=== PATIENT | male | born 1940 | race Caucasian/White ===

== ENCOUNTER 2016-10-30 14:32 | Observation (INO) | payer OTHER ==
[~2016-10-30] VITALS: Ht 188 cm; Wt 94.5 kg
[2016-10-30] MEDS ORDERED: ASPIRIN 81 MG CHEW PO STA (15:07)
[2016-10-30] MEDS ORDERED: GI COCKTAIL PO STA (15:07)
--- NOTE | 2016-10-30 15:14 | DIAGNOSTIC IMAGING REPORT ---
CHEST ONE VIEW PORTABLE HISTORY: Atypical CHEST PAIN COMPARISON: None. FINDINGS: No pneumothorax. No pleural effusions. The heart is top normal in size. No evidence for pulmonary edema. Questionable left upper medial density is likely due to the overlapping ribs. Bibasilar densities favor subsegmental atelectasis. IMPRESSION: Bibasilar densities favor subsegmental atelectasis. Otherwise, no acute process within the chest. Electronically signed by: Kain Messer M.D. 10/30/2016 3:13 PM Dictated Date/Time: 10/30/2016 3:10 PM
[2016-10-30 15:15] LABS: BASO % 0.6 %; BASO ABS # 0.04 K/uL (0-0.2); COMPLETE YES; EOS % 4.5 %; HEMATOCRIT 43.3 % (42-52); IG% 0.3 %; LYMPH % 26.4 %; LYMPH ABS # 1.82 K/uL (1.2-3.4); MEAN CELL VOLUME 89.5 fL (80-100); MEAN CORPUSCULAR HEMOGLOBIN 30.6 pg (25-34); MEAN CORPUSCULAR HGB CONC 34.2 g/dl (32-36); MEAN PLATELET VOLUME 12.1 fL (7.4-10.4); NEUT % 58.2 %; PLATELET COUNT 187 K/uL (130-400); RED BLOOD COUNT 4.84 M/uL (4.7-6.1)
[2016-10-30] MEDS ORDERED: LIDOCAINE HCL 2% VISC SOLN 20 ML UDC ONE (15:15)
[2016-10-30] MEDS ORDERED: ALUMINUM/MAGNESIUM SUSP 30 ML UDC ONE (15:15)
[2016-10-30 15:23] LABS: PROTHROMBIN TIME (PATIENT) 10.9 SECONDS (9.0-12.0)
[2016-10-30] MEDS ORDERED: POLY335019 PO (15:30)
[2016-10-30] MEDS ORDERED: IBUP-103 PO (15:30)
[2016-10-30] MEDS ORDERED: MULT-513 PO (15:30)
[2016-10-30] MEDS ORDERED: TAMS0.4C38 PO (15:30)
[2016-10-30] MEDS ORDERED: FENO200C6 PO (15:30)
[2016-10-30] MEDS ORDERED: ZNTT/150 PO (15:30)
[2016-10-30 15:36] LABS: BUN/CREATININE RATIO 13.7 (10-20); CALCIUM 9.7 mg/dl (8.5-10.1); CREATININE 1.2 mg/dl (0.60-1.40); POTASSIUM 4.1 mmol/L (3.5-5.1)
[2016-10-30 15:41] LABS: CKMB/CK RATIO 2.1 (0-3.0)
[2016-10-30 17:08] VITALS: O2SAT 92; Ht 188 cm; Wt 94.5 kg
[2016-10-30] MEDS ORDERED: NITROGLYCERIN 0.4 MG SL PER TAB CHARGE SL PRN (17:30)
[2016-10-30] MEDS ORDERED: ONDANSETRON INJ 2 MG/ML 2 ML VIAL IV PRN (17:30)
[2016-10-30] MEDS ORDERED: FAMO20TA9 PO (17:38)
[2016-10-30] MEDS ORDERED: FAMOTIDINE 20 MG TAB PO PRN (17:45)
[2016-10-30 18:19] VITALS: O2SAT 95
[2016-10-30 18:35] VITALS: BP 158/83; PULSE 62; TEMP 36.4; O2SAT 94
[2016-10-30] MEDS ORDERED: MoRPHine SULFATE 2 MG/ML CARP IV PRN (19:00)
--- NOTE | 2016-10-30 19:25 | History and Physical ---
History & Physical Date & Time of Service: October 30, 2016 at 18:57 Chief Complaint: Chest Pain Primary Care Physician: Colby Morelos M.D. History of Present Illness Source: patient, spouse, clinic records, hospital records 76 year old male with PMH of BPH, Dyslipidemia, CKD stage 3, Diaphragmatic hernia presents to the Emergency Room with complaints of constant chest pain that started yesterday. He states that his constant chest pain is accompanied by intermittent "sharp" pains that he rates as a 8/10 in severity. He said that yesterday the pain was radiating to his right jaw area. He said today his both upper extremities feel numb. Nothing relieves or worsens the pain. he said that he had hx of hiatal hernia and usually take famotidine for acid reflux. he said that he never experience any chest pain like this. he is very active and continue to work. he said that he does have a family history of cardiac disease. His father of an aortic aneurysm. he is pain is about 5/10 now. he Denies any SOB, palpitation, headache, dizziness, diaphoresis and weakness. Past Medical/Surgical History Medical Problems: (1) Hiatal hernia Status: Chronic (2) Hypercholesteremia Status: Chronic Family History Cancer Diabetes mellitus FHx: aneurysm Heart disease Hypertension Social History Smoking Status: Former Smoker Alcohol Use: none Marital Status: Occupational Status: employed Allergies Coded Allergies: No Known Allergies (Unverified , 10/30/16) Home Medications Scheduled Fenofibrate (Tricor), 200 MG PO DAILY Multivitamins/Minerals (Mvi With Minerals), 1 TAB PO DAILY Polyethylene Glycol 3350 (Miralax), 17 GM PO DAILY Tamsulosin Hcl (Flomax), 0.4 MG PO DAILY Scheduled PRN Famotidine (Pepcid), 1 TAB PO DAILY PRN for acid reflux Review of Systems Constitutional: No chills, No fever, No sweats Eyes: No discharge, No eye pain, No worsening of vision ENT: No hearing loss, No nasal symptoms, No sore throat, No unusual epistaxis Respiratory: No cough, No dyspnea on exertion, No shortness of breath, No sputum, No wheezing Cardiovascular: + chest pain, No claudication, No edema Abdomen: No nausea, No pain, No vomiting Musculoskeletal: No calf pain Genitourinary - Male: No dysuria Neurologic: No memory loss, No vertigo, No weakness Psychiatric: No substance abuse Endocrine: No excessive thirst, No fatigue Hematologic / Lymphatic: No abnormal bleeding/bruising, No night sweats Integumentary: No itch, No rash Physical Exam Vital Signs Date Time Temp Pulse Resp B/P Pulse Ox O2 Delivery O2 Flow Rate FiO2 10/30/16 18:19 36.7 63 18 137/75 95 10/30/16 18:00 63 18 137/75 95 10/30/16 17:57 127/72 10/30/16 17:08 92 Room Air 10/30/16 16:47 61 94 10/30/16 16:42 66 92 10/30/16 16:30 135/80 10/30/16 16:12 61 94 10/30/16 16:07 61 18 93 Room Air 10/30/16 16:00 141/85 10/30/16 15:37 61 94 10/30/16 15:32 63 18 93 Room Air 10/30/16 15:30 127/75 10/30/16 15:12 64 18 133/75 95 Room Air 10/30/16 15:06 63 10/30/16 15:00 133/75 10/30/16 14:55 95 Room Air 10/30/16 14:55 95 Room Air 10/30/16 14:55 95 Room Air 10/30/16 14:40 36.7 63 22 152/75 95 Room Air General Appearance: WD/WN, no apparent distress Head: normocephalic, atraumatic Eyes: normal inspection, PERRL, EOMI ENT: normal ENT inspection, hearing grossly normal Neck: supple, no JVD Respiratory/Chest: lungs clear, normal breath sounds, no respiratory distress Cardiovascular: regular rate, rhythm, no JVD, no murmur Abdomen/GI: normal bowel sounds, non tender, soft, + pertinent finding ( tenderness in mid epigastric area with deep palpation) Back: normal inspection, no CVA tenderness, normal range of motion Extremities/Musculoskelatal: normal inspection, no calf tenderness, no pedal edema Neurologic/Psych: no motor/sensory deficits, alert, normal mood/affect, oriented x 3 Skin: normal color, warm/dry, no rash Diagnostics Laboratory Results Results Past 24 Hours Test 10/30/16 14:55 10/30/16 15:06 Range/Units White Blood Count 6.90 4.8-10.8 K/uL Red Blood Count 4.84 4.7-6.1 M/uL Hemoglobin 14.8 14.0-18.0 g/dL Hematocrit 43.3 42-52 % Mean Corpuscular Volume 89.5 80-100 fL Mean Corpuscular Hemoglobin 30.6 25-34 pg Mean Corpuscular Hemoglobin Concent 34.2 32-36 g/dl Platelet Count 187 130-400 K/uL Mean Platelet Volume 12.1 7.4-10.4 fL Neutrophils (%) (Auto) 58.2 % Lymphocytes (%) (Auto) 26.4 % Monocytes (%) (Auto) 10.0 % Eosinophils (%) (Auto) 4.5 % Basophils (%) (Auto) 0.6 % Neutrophils # (Auto) 4.02 1.4-6.5 K/uL Lymphocytes # (Auto) 1.82 1.2-3.4 K/uL Monocytes # (Auto) 0.69 0.11-0.59 K/uL Eosinophils # (Auto) 0.31 0-0.5 K/uL Basophils # (Auto) 0.04 0-0.2 K/uL RDW Standard Deviation 41.6 36.4-46.3 fL RDW Coefficient of Variation 12.8 11.5-14.5 % Immature Granulocyte % (Auto) 0.3 % Immature Granulocyte # (Auto) 0.02 0.00-0.02 K/uL Prothrombin Time 10.9 9.0-12.0 SECONDS Prothromb Time International Ratio 1.0 0.9-1.1 Activated Partial Thromboplast Time 27.1 21.0-31.0 SECONDS Partial Thromboplastin Ratio 1.0 Sodium Level 142 136-145 mmol/L Potassium Level 4.1 3.5-5.1 mmol/L Chloride Level 108 98-107 mmol/L Carbon Dioxide Level 25 21-32 mmol/L Anion Gap 9.0 3-11 mmol/L Blood Urea Nitrogen 16 7-18 mg/dl Creatinine 1.20 0.60-1.40 mg/dl Est Creatinine Clear Calc Drug Dose 62.8 ml/min Estimated GFR () 68.6 Estimated GFR (Non- 59.2 BUN/Creatinine Ratio 13.7 10-20 Random Glucose 102 70-99 mg/dl Calcium Level 9.7 8.5-10.1 mg/dl Total Bilirubin 0.4 0.2-1 mg/dl Direct Bilirubin 0.1 0-0.2 mg/dl Aspartate Amino Transf (AST/SGOT) 22 15-37 U/L Alanine Aminotransferase (ALT/SGPT) 39 12-78 U/L Alkaline Phosphatase 59 45-117 U/L Total Creatine Kinase 133 39-308 U/L Creatine Kinase MB 2.8 0.5-3.6 ng/ml Creatine Kinase MB Ratio 2.1 0-3.0 Total Protein 7.6 6.4-8.2 gm/dl Albumin 4.2 3.4-5.0 gm/dl Lipase 161 73-393 U/L Bedside Troponin I 0.000 0-0.045 ng/ml Diagnostic Radiology CHEST ONE VIEW PORTABLE HISTORY: Atypical CHEST PAIN COMPARISON: None. FINDINGS: No pneumothorax. No pleural effusions. The heart is top normal in size. No evidence for pulmonary edema. Questionable left upper medial density is likely due to the overlapping ribs. Bibasilar densities favor subsegmental atelectasis. IMPRESSION: Bibasilar densities favor subsegmental atelectasis. Otherwise, no acute process within the chest. Electronically signed by: Kain Messer M.D. 10/30/2016 3:13 PM Impression Assessment and Plan Chest Pain Need to r/o ACS Risks factor dyslipidemia, family history and age will observe in telemetry 1set troponin negative will order 2 more sets EKG showed NSR with no significant ST changes received aspirin 324mg in the ER Will start on aspirin 81mg daily will get echo, ekg in am morphine and nitro for pain Will consult cardiology if chest pain persist and CM trending up Dyslipidemia On fenofibrate Check lipid panel in am Diaphragmatic hernia Continue Pepcid BPH continue flomax DVT px on heparin subq CODE STATUS FULL CODE as per patient Level of Care Telemetry Advanced Directives Existing Living Will: No Existing Power of Lap Machine Operator: No Resuscitation Status FULL RESUSCITATION VTE Prophylaxis VTE Risk Assessment Done? Y/N: Yes Risk Level: Low Given or contraindicated: Unfractionated heparin SQ
--- NOTE | 2016-10-30 19:39 | EMERGENCY ROOM VISIT NOTE ---
History Report prepared by Jessica: Albert Harrington Under the Supervision of: Dr. Raúl Baltazar M.D. First contact with patient: 14:51 Chief Complaint: CHEST PAIN Stated Complaint: CHEST PAINS History of Present Illness The patient is a 76 year old male who presents to the Emergency Room with complaints of constant pain diffusely across the chest that began yesterday. He states that his constant pain is accompanied by intermittent "sharp" pains that he rates as a 8/10 in severity. Nothing relieves or worsens the pain. The patient claims that he experienced radiation of the pain in to his right jaw yesterday. He does have a history of hyperlipidemia and has had a hiatal hernia in the past. The hiatal hernia in the past did cause him chest pain, but he cannot recall if this episode is similar. He took some Advil yesterday for his pain. The patient does have a family history of cardiac disease. His father of an aortic aneurysm, and his brother had an abdominal aneurysm. He currently denies LOC, headache, fevers, chills, diaphoresis, visual changes, neck pain, breathing difficulties, nausea, vomiting, abdominal pain, melena, hematochezia, urinary symptoms, numbness, weakness, lymphadenopathy, rash, or other complaints. 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 A total of ten systems were reviewed and were otherwise negative. Past Medical & Surgical Medical Problems: (1) Chest pain (2) Hiatal hernia (3) Hypercholesteremia Family History Cancer Diabetes mellitus FHx: aneurysm Heart disease Hypertension Social History Smoking Status: Former Smoker Drug Use: none Marital Status: Housing Status: lives with significant other Occupation Status: employed Current/Historical Medications Scheduled Fenofibrate (Tricor), 200 MG PO DAILY Multivitamins/Minerals (Mvi With Minerals), 1 TAB PO DAILY Polyethylene Glycol 3350 (Miralax), 17 GM PO DAILY Tamsulosin Hcl (Flomax), 0.4 MG PO DAILY Scheduled PRN Famotidine (Pepcid), 1 TAB PO DAILY PRN for acid reflux Allergies Coded Allergies: No Known Allergies (Unverified , 5/11/17) Physical Exam Vital Signs Date Time Temp Pulse Resp B/P Pulse Ox O2 Delivery O2 Flow Rate FiO2 10/30/16 17:08 92 Room Air 10/30/16 16:47 61 94 10/30/16 16:42 66 92 10/30/16 16:30 135/80 10/30/16 16:12 61 94 10/30/16 16:07 61 18 93 Room Air 10/30/16 16:00 141/85 10/30/16 15:37 61 94 10/30/16 15:32 63 18 93 Room Air 10/30/16 15:30 127/75 10/30/16 15:12 64 18 133/75 95 Room Air 10/30/16 15:06 63 10/30/16 15:00 133/75 10/30/16 14:55 95 Room Air 10/30/16 14:55 95 Room Air 10/30/16 14:55 95 Room Air 10/30/16 14:40 36.7 63 22 152/75 95 Room Air Physical Exam GENERAL: Awake, alert, well-appearing, in no distress HENT: Normocephalic, atraumatic. Oropharynx unremarkable. EYES: Normal conjunctiva. Sclera non-icteric. NECK: Supple. No nuchal rigidity. FROM. No JVD. RESPIRATORY: Clear to auscultation. CARDIAC: Regular rate, normal rhythm. Extremities warm and well perfused. Pulses equal. ABDOMEN: Soft, non-distended. Very mild epigastric tenderness to palpation. No rebound or guarding. No masses. RECTAL: Deferred. MUSCULOSKELETAL: Chest examination reveals no tenderness. The back is symmetrical on inspection without obvious abnormality. There is no CVA tenderness to palpation. No joint edema. LOWER EXTREMITIES: Calves are equal size bilaterally and non-tender. No edema. No discoloration. NEURO: Normal sensorium. No sensory or motor deficits noted. SKIN: No rash or jaundice noted. Medical Decision & Procedures ER Provider Diagnostic Interpretation: Radiology results as stated below per my review and radiologist interpretation: CHEST ONE VIEW PORTABLE HISTORY: Atypical CHEST PAIN COMPARISON: None. FINDINGS: No pneumothorax. No pleural effusions. The heart is top normal in size. No evidence for pulmonary edema. Questionable left upper medial density is likely due to the overlapping ribs. Bibasilar densities favor subsegmental atelectasis. IMPRESSION: Bibasilar densities favor subsegmental atelectasis. Otherwise, no acute process within the chest. Electronically signed by: Kain Messer M.D. 10/30/2016 3:13 PM Dictated Date/Time: 10/30/2016 3:10 PM Laboratory Results 10/30/16 14:55 Red Blood Count 4.84, Mean Corpuscular Volume 89.5, Mean Corpuscular Hemoglobin 30.6, Mean Corpuscular Hemoglobin Concent 34.2, Mean Platelet Volume 12.1, Neutrophils (%) (Auto) 58.2, Lymphocytes (%) (Auto) 26.4, Monocytes (%) (Auto) 10.0, Eosinophils (%) (Auto) 4.5, Basophils (%) (Auto) 0.6, Neutrophils # (Auto ) 4.02, Lymphocytes # (Auto) 1.82, Monocytes # (Auto) 0.69, Eosinophils # (Auto ) 0.31, Basophils # (Auto) 0.04 10/30/16 14:55 Test 10/30/16 14:55 10/30/16 15:06 White Blood Count 6.90 K/uL (4.8-10.8) Red Blood Count 4.84 M/uL (4.7-6.1) Hemoglobin 14.8 g/dL (14.0-18.0) Hematocrit 43.3 % (42-52) Mean Corpuscular Volume 89.5 fL (80-100) Mean Corpuscular Hemoglobin 30.6 pg (25-34) Mean Corpuscular Hemoglobin Concent 34.2 g/dl (32-36) Platelet Count 187 K/uL (130-400) Mean Platelet Volume 12.1 fL (7.4-10.4) Neutrophils (%) (Auto) 58.2 % Lymphocytes (%) (Auto) 26.4 % Monocytes (%) (Auto) 10.0 % Eosinophils (%) (Auto) 4.5 % Basophils (%) (Auto) 0.6 % Neutrophils # (Auto) 4.02 K/uL (1.4-6.5) Lymphocytes # (Auto) 1.82 K/uL (1.2-3.4) Monocytes # (Auto) 0.69 K/uL (0.11-0.59) Eosinophils # (Auto) 0.31 K/uL (0-0.5) Basophils # (Auto) 0.04 K/uL (0-0.2) RDW Standard Deviation 41.6 fL (36.4-46.3) RDW Coefficient of Variation 12.8 % (11.5-14.5) Immature Granulocyte % (Auto) 0.3 % Immature Granulocyte # (Auto) 0.02 K/uL (0.00-0.02) Prothrombin Time 10.9 SECONDS (9.0-12.0) Prothromb Time International Ratio 1.0 (0.9-1.1) Activated Partial Thromboplast Time 27.1 SECONDS (21.0-31.0) Partial Thromboplastin Ratio 1.0 Anion Gap 9.0 mmol/L (3-11) Est Creatinine Clear Calc Drug Dose 62.8 ml/min Estimated GFR () 68.6 Estimated GFR (Non- 59.2 BUN/Creatinine Ratio 13.7 (10-20) Calcium Level 9.7 mg/dl (8.5-10.1) Total Bilirubin 0.4 mg/dl (0.2-1) Direct Bilirubin 0.1 mg/dl (0-0.2) Aspartate Amino Transf (AST/SGOT) 22 U/L (15-37) Alanine Aminotransferase (ALT/SGPT) 39 U/L (12-78) Alkaline Phosphatase 59 U/L (45-117) Total Creatine Kinase 133 U/L (39-308) Creatine Kinase MB 2.8 ng/ml (0.5-3.6) Creatine Kinase MB Ratio 2.1 (0-3.0) Total Protein 7.6 gm/dl (6.4-8.2) Albumin 4.2 gm/dl (3.4-5.0) Lipase 161 U/L (73-393) Bedside Troponin I 0.000 ng/ml (0-0.045) Laboratory results reviewed by me Medications Administered Medications (Trade) Dose Ordered Sig/Melissa Route Start Time Stop Time Status Last Admin Dose Admin Aspirin (Aspirin Chew) 324 mg NOW STAT PO 10/30/16 15:07 10/30/16 15:09 DC 10/30/16 15:18 324 MG Al Hydroxide/Mg Hydroxide (Maalox Susp) 30 ml STK-MED ONCE .ROUTE 10/30/16 15:15 10/30/16 15:16 DC 10/30/16 15:19 30 ML Lidocaine HCl (Viscous Lidocaine 2% Soln) 20 ml STK-MED ONCE .ROUTE 10/30/16 15:15 10/30/16 15:16 DC 10/30/16 15:19 10 ML ECG Indication: chest pain Rate (beats per minute): 88 Rhythm: normal sinus Findings: nonspecific-ST abn, no ectopy ED Course 1505: The patient was evaluated in room B11B. A complete history and physical exam was performed. 1507: Ordered Aspiring 324 mg PO, GI cocktail 24 mL PO. 1515: Ordered Lidocaine HCl 20 mL, Maalox Susp 30 mL 1650: I discussed the case with Dr. Abdoulaye Cruz, he will evaluate the patient for further treatment. 165: I checked on the patient at this time. He is agreeable to stay in the hospital for a chest pain rule out. Medical Decision Triage Nursing notes reviewed. The patient's presentation and history were concerning for chest pain. Etiologies such as cardiac ischemia, aortic dissection, pulmonary embolism, pneumonia, pneumothorax, musculoskeletal, infections, gastrointestinal, as well as others were entertained. Patient was evaluated. He was treated with a GI cocktail and aspirin. He noticed some improvement. The patient had an unremarkable CBC, chemistry panel , LFTs, lipase, and cardiac markers. Chest x-ray was negative. No wide mediastinum. Given the patient's history and complaints further evaluation and management for his chest pain in the hospital was deemed appropriate. The patient was informed. The patient and were in agreement. Consultation was made with the Merlene cruz. The patient was evaluated in the Emergency Room and admitted. The chart was completed utilizing [employer] Speech voice recognition software. Grammatical errors, random word insertions, pronoun errors, and incomplete sentences are an occasional consequence of this system due to software limitations, ambient noise, and hardware issues. Any formal questions or concerns about the content, text, or information contained within the body of this dictation should be directly addressed to the physician for clarification. Consults Time Called: 164 Consulting Physician: Dr. Abdoulaye Cruz Returned Call: 1650 I discussed the case with Dr. Abdoulaye Cruz, he will evaluate the patient for further treatment. Impression Primary Impression: Substernal chest pain Scribe Attestation The scribe's documentation has been prepared under my direction and personally reviewed by me in its entirety. I confirm that the note above accurately reflects all work, treatment, procedures, and medical decision making performed by me. Departure Information Dispostion Being Evaluated By Hospitalist Patient Instructions My [facility]
[2016-10-30] MEDS: HEPARIN SOD 5000 UNIT/0.5 ML CARP SQ SCH (21:33)
[2016-10-30] MEDS ORDERED: IV FLUIDS COMPLETED PRN (21:45)
[2016-10-31 00:09] VITALS: BP 118/67; PULSE 60; TEMP 36.7; O2SAT 93
[2016-10-31 02:26] LABS: HEMATOCRIT 41.3 % (42-52); MEAN CELL VOLUME 90.2 fL (80-100); MEAN CORPUSCULAR HEMOGLOBIN 30.1 pg (25-34); MEAN CORPUSCULAR HGB CONC 33.4 g/dl (32-36); MEAN PLATELET VOLUME 11.7 fL (7.4-10.4); PLATELET COUNT 169 K/uL (130-400); RED BLOOD COUNT 4.58 M/uL (4.7-6.1); WHITE BLOOD COUNT 7.01 K/uL (4.8-10.8)
[2016-10-31 02:42] LABS: BLOOD UREA NITROGEN 19 mg/dl (7-18); CARBON DIOXIDE 27 mmol/L (21-32); CHLORIDE 109 mmol/L (98-107); GLUCOSE 109 mg/dl (70-99); POTASSIUM 3.8 mmol/L (3.5-5.1); SODIUM 142 mmol/L (136-145)
[2016-10-31 02:47] LABS: CHOLESTEROL 143 mg/dl (0-200); CHOLESTEROL/HDL RATIO 3.6; HDL CHOLESTEROL 40 mg/dl; LDL CHOLESTEROL CALCULATED 81 mg/dl; TRIGLYCERIDES 112 mg/dl (0-150); VERY LOW DENSITY LIPOPROT CALC 22 mg/dl
[2016-10-31 04:26] VITALS: BP 111/68; PULSE 62; TEMP 36.7; O2SAT 92
[2016-10-31] MEDS: HEPARIN SOD 5000 UNIT/0.5 ML CARP SQ SCH ×2 (05:22→13:38)
[2016-10-31] MEDS ORDERED: SODIUM CHLORIDE 0.9% 1000ML 1,000 ML IV SCH (08:30)
[2016-10-31] MEDS ORDERED: TAMSULOSIN HCL 0.4 MG CAP PO SCH (09:00)
[2016-10-31] MEDS ORDERED: FENOFIBRATE 145 MG TAB PO SCH (09:00)
[2016-10-31] MEDS ORDERED: ASPIRIN 81 MG ECTAB PO SCH (09:00)
[2016-10-31] MEDS ORDERED: POLYETHYLENE (MIRALAX) 17 GM PACK PO SCH (09:00)
[2016-10-31 12:04] VITALS: BP 150/75; PULSE 55; TEMP 36.4; O2SAT 94
[2016-10-31 15:08] VITALS: BP 137/82; PULSE 55; TEMP 36.4; O2SAT 94
--- NOTE | 2016-10-31 16:28 | Progress Note ---
Medicine Progress Note Date & Time of Visit: October 31, 2016 at 16:17. Subjective Pt was seen and examined Lying in bed very comfortable with no distress Pt said that he feels fine he said that he does not have any chest pain at this time denies any palpitation, dizziness and SOB Objective Last 8 Hrs Date Time Temp Pulse Resp B/P Pulse Ox O2 Delivery O2 Flow Rate FiO2 10/31/16 15:08 36.4 55 18 137/82 94 Room Air 10/31/16 12:04 36.4 55 18 150/75 94 10/31/16 12:00 Room Air Physical Exam: General- No acute distress Head- atraumatic Eyes- PERRL, EOMI ENT- oropharynx clear Neck- supple, no JVD Lungs- clear to auscultation, no wheezing Heart- regular rhythm; no murmur Abdomen- normal bowel sounds, soft, Nontender Extremities- no calf tenderness Neuro- alert, oriented x 3; PERRL, EOMI; no facial palsy; no dysarthria Skin- warm & dry Laboratory Results: Last 24 Hours Test 10/30/16 21:00 10/30/16 21:05 10/31/16 02:21 Creatine Kinase MB Ratio Creatine Kinase MB 2.0 ng/ml Troponin I < 0.015 ng/ml < 0.015 ng/ml White Blood Count 7.01 K/uL Red Blood Count 4.58 M/uL Hemoglobin 13.8 g/dL Hematocrit 41.3 % Mean Corpuscular Volume 90.2 fL Mean Corpuscular Hemoglobin 30.1 pg Mean Corpuscular Hemoglobin Concent 33.4 g/dl RDW Standard Deviation 41.9 fL RDW Coefficient of Variation 12.8 % Platelet Count 169 K/uL Mean Platelet Volume 11.7 fL Sodium Level 142 mmol/L Potassium Level 3.8 mmol/L Chloride Level 109 mmol/L Carbon Dioxide Level 27 mmol/L Anion Gap 6.0 mmol/L Blood Urea Nitrogen 19 mg/dl Creatinine 1.50 mg/dl Est Creatinine Clear Calc Drug Dose 50.3 ml/min Estimated GFR () 52.4 Estimated GFR (Non- 45.2 BUN/Creatinine Ratio 13.0 Random Glucose 109 mg/dl Calcium Level 9.0 mg/dl Triglycerides Level 112 mg/dl Cholesterol Level 143 mg/dl HDL Cholesterol 40 mg/dl LDL Cholesterol, Calculated 81 mg/dl VLDL Cholesterol, Calculated 22 mg/dl Cholesterol/HDL Ratio 3.6 Assessment & Plan Chest Pain Need to r/o ACS Possible atypical Pain free at this time Risks factor dyslipidemia, family history and age all set of troponin negative EKG showed no significant ST changes received aspirin 324mg in the ER on aspirin 81mg daily Echo showed Ejection Fraction = 65-70%. * The left ventricular wall motion is normal. * The aortic valve is mildly calcified. * Aortic valve sclerosis mild, without significant aortic valvular stenosis. * There is moderate focal calcification of the anterior mitral valve leaflet. * The mitral valve chordae are thickened and/or calcified. * There is no mitral valve stenosis. * Significant mitral regurgitation is absent. * Grade I diastolic dysfunction, (abnormal relaxation pattern). Elevated Creatine Possible related to dehydration Received IV fluid Continue Monitor BMP Will avoid nephrotoxic agents Dyslipidemia On fenofibrate Chol 143, LDL 81, Trig 112, HDL 40 Diaphragmatic hernia Continue Pepcid BPH continue flomax DVT px on heparin subq CODE STATUS FULL CODE Disposition Will discharge home today if echo is normal Follow up with PCP Dr. Farmer on 11/06 @ 2:45 pm Current Inpatient Medications: Current Inpatient Medications Medications (Trade) Dose Ordered Sig/Melissa Route Start Time Stop Time Status Last Admin Dose Admin Heparin Sodium (Porcine) (Heparin Sq 5000 Unit/0.5ml) 5,000 unit Q8 SQ 10/30/16 22:00 11/29/16 21:59 Ondansetron HCl (Zofran Inj) 4 mg Q6H PRN IV 10/30/16 17:30 11/29/16 17:29 Nitroglycerin (Nitrostat Tab) 0.4 mg UD PRN SL 10/30/16 17:30 11/29/16 17:29 Aspirin (Ecotrin Tab) 81 mg QAM PO 10/31/16 09:00 11/30/16 08:59 10/31/16 07:57 81 MG Famotidine (Pepcid Tab) 20 mg DAILY PRN PO 10/30/16 17:45 11/29/16 17:44 Tamsulosin HCl (Flomax Cap) 0.4 mg DAILY PO 10/31/16 09:00 11/30/16 08:59 10/31/16 07:56 0.4 MG Fenofibrate (Tricor Tab) 145 mg DAILY PO 10/31/16 09:00 11/30/16 08:59 10/31/16 07:57 145 MG Polyethylene (Miralax Powder Packet) 17 gm QAM PO 10/31/16 09:00 11/30/16 08:59 10/31/16 07:56 17 GM Miscellaneous Information (Order Awaiting Action) 1 ea QS N/A 10/31/16 00:00 11/30/16 00:00 Morphine Sulfate (MoRPHine SULFATE INJ) 1 mg Q4 PRN IV 10/30/16 19:00 11/13/16 18:59 10/30/16 19:13 1 MG Miscellaneous 1 ea 1 ea PRN PRN N/A 10/30/16 21:45 10/30/17 21:44 Sodium Chloride (Nss 1000ml) 1,000 ml @ 100 mls/hr Q10H IV 10/31/16 08:30 11/30/16 08:29 10/31/16 09:01 100 MLS/HR
--- NOTE | 2016-10-31 16:59 | ECHOCARDIOGRAM REPORT ---
*NOTICE TO RECEIVING LIBERTARIAN AGENCY This information is strictly Confidential and protected under [place] law. [place] law prohibits you from making any further disclosure of this information unless further disclosure is expressly permitted by the written consent of the person to whom it pertains or is authorized by law. A general authorization for the release of medical or other information is not sufficient for this purpose. Hospital accepts no responsibility if the information is made available to any other person, INCLUDING THE PATIENT. Interpretation Summary * Name: REJI HORTON Study Date: 10/31/2016 08:50 AM BP: 111/68 mmHg * Patient Location: [facility]\S\N284\S\2 HR: 55 * : 1940 (M/d/yyyy) Gender: Male Height: 74 in * Age: 76 yrs Ethnicity: [place] Weight: 215 lb * Ordering Physician: Eren Meade * Referring Physician: Colby Morelos * Performed By: Estella Beltran RDCS * * Reason For Study: CHEST PAIN * BSA: 2.2 m2 * The study was technically adequate. * There is no comparison study available. * -- Conclusions -- * Ejection Fraction = 65-70%. * The left ventricular wall motion is normal. * The aortic valve is mildly calcified. * Aortic valve sclerosis mild, without significant aortic valvular stenosis. * There is moderate focal calcification of the anterior mitral valve leaflet. * The mitral valve chordae are thickened and/or calcified. * There is no mitral valve stenosis. * Significant mitral regurgitation is absent. * Grade I diastolic dysfunction, (abnormal relaxation pattern). Procedure Details * A complete two-dimensional transthoracic echocardiogram was performed (2D, M-mode, Doppler and color flow Doppler). Left Ventricle * The left ventricle is normal in size. * There is no thrombus. * There is mild concentric left ventricular hypertrophy. * Ejection Fraction = 65-70%. * Left ventricular systolic function is normal. * The left ventricular wall motion is normal. Right Ventricle * The right ventricle is normal size. * The right ventricular systolic function is normal as assessed by tricuspid annular plane systolic excursion (TAPSE) (normal >1.5 cm). Atria * The left atrial size is normal. * Right atrial size is normal. * There is no evidence of atrial septal defect, but resolution does not allow assessment for a patent foramen ovale. Mitral Valve * There is moderate focal calcification of the anterior mitral valve leaflet. * The mitral valve chordae are thickened and/or calcified. * There is no mitral valve stenosis. * Significant mitral regurgitation is absent. Tricuspid Valve * The tricuspid valve is normal. * There is no tricuspid stenosis. * Significant tricuspid regurgitation is absent. Aortic Valve * The aortic valve is trileaflet. * The aortic valve is mildly calcified. * Aortic valve sclerosis mild, without significant aortic valvular stenosis. * Aortic stenosis is absent. * There is no significant aortic regurgitation. Pulmonic Valve * The pulmonary valve is not well seen, but the Doppler examination is normal without significant regurgitation or stenosis. Great Vessels * The aortic root is normal size. Pericardium/Pleural * There is no pericardial effusion. Great Vessels * Normal inferior vena cava diameter and respiratory variation suggests normal central venous pressure. Left Ventricular Diastolic Function * Grade I diastolic dysfunction, (abnormal relaxation pattern). MMode 2D Measurements and Calculations IVSd 1.1 cm IVSs 1.6 cm LVIDd 4.1 cm LVIDs 2.2 cm LVPWd 1.1 cm LVPWs 1.8 cm IVS/LVPW 1.1 FS 45.7 % EDV(Teich) 76.1 ml ESV(Teich) 17.1 ml EF(Teich) 77.5 % EDV(cubed) 71.2 ml ESV(cubed) 11.4 ml EF(cubed) 84.0 % % IVS thick 43.9 % % LVPW thick 66.6 % LV mass(C)d 153.5 grams LV mass(C)dI 68.5 grams/m\S\2 LV mass(C)s 141.4 grams LV mass(C)sI 63.1 grams/m\S\2 CO(Teich) 3.5 l/min CI(Teich) 1.6 l/min/m\S\2 SV(Teich) 59.0 ml SI(Teich) 26.3 ml/m\S\2 CO(cubed) 3.5 l/min CI(cubed) 1.6 l/min/m\S\2 SV(cubed) 59.8 ml SI(cubed) 26.7 ml/m\S\2 Ao root diam 3.0 cm Ao root area 7.0 cm\S\2 LA dimension 3.1 cm LA/Ao 1.0 LVAd ap4 30.3 cm\S\2 LVLd ap4 8.5 cm EDV(MOD-sp4) 88.9 ml LVAs ap4 14.6 cm\S\2 LVLs ap4 6.3 cm ESV(MOD-sp4) 29.0 ml EF(MOD-sp4) 67.4 % LVAd ap2 25.3 cm\S\2 LVLd ap2 8.0 cm EDV(MOD-sp2) 67.2 ml LVAs ap2 12.0 cm\S\2 LVLs ap2 5.4 cm ESV(MOD-sp2) 23.7 ml EF(MOD-sp2) 64.7 % CO(MOD-sp4) 3.5 l/min CI(MOD-sp4) 1.6 l/min/m\S\2 SV(MOD-sp4) 59.9 ml SI(MOD-sp4) 26.7 ml/m\S\2 CO(MOD-sp2) 2.6 l/min CI(MOD-sp2) 1.1 l/min/m\S\2 SV(MOD-sp2) 43.5 ml SI(MOD-sp2) 19.4 ml/m\S\2 Doppler Measurements and Calculations MV E max carole 68.9 cm/sec MV A max carole 67.4 cm/sec MV E/A 1.0 MV dec time 0.28 sec Ao V2 max 129.5 cm/sec Ao max PG 6.7 mmHg Ao max PG (full) 1.0 mmHg LV V1 max PG 5.7 mmHg LV V1 max 119.3 cm/sec
[2016-10-31 17:49] VITALS: BP 137/82; PULSE 55; TEMP 36.4; O2SAT 94
[2016-10-31] MEDS ORDERED: ASPEC81 PO ×2 (18:02→18:11)
--- NOTE | 2016-10-31 18:06 | Discharge Instructions ---
Discharge Instructions Date of Service October 31, 2016. Admission Reason for Admission: Chest Pain Discharge Discharge Diagnosis / Problem: Chest pain, Elevated creatine, GERD Discharge Goals Goal(s): Decrease discomfort, Improve function, Improve disease control Activity Recommendations Activity Limitations: resume your previous activity (as tolerated) . Instructions / Follow-Up Instructions / Follow-Up Follow up with your primary care physician Dr. Farmer (dr. Morelos is on vacation) on 11/06 @ 2:45 pm Check BMP within 1 week Avoid nephrotoxic agents such as aleve, ibuprofen, motrin, naproxen Current Hospital Diet Patient's current hospital diet: AHA Diet (Heart Healthy) Discharge Diet Recommended Diet: AHA Diet (Heart Healthy) Pending Studies Studies pending at discharge: no Laboratory Results Lipid Panel Test 10/31/16 02:21 Range/Units Triglycerides Level 112 0-150 mg/dl Cholesterol Level 143 0-200 mg/dl HDL Cholesterol 40 mg/dl Cholesterol/HDL Ratio 3.6 LDL Cholesterol, Calculated 81 mg/dl Medical Emergencies . Who to Call and When: Medical Emergencies: If at any time you feel your situation is an emergency, please call 911 immediately. . Non-Emergent Contact Non-Emergency issues call your: Primary Care Provider Call Non-Emergent contact if: you have any medication questions . . "Provider Documentation" section prepared by Eren Meade. . VTE Core Measure Inpt VTE Proph given/why not?: Unfractionated heparin SQ
--- NOTE | 2016-11-02 18:50 | Discharge Summary ---
Discharge Summary Date of Service November 02, 2016. Discharge Summary Admission Date: October 30, 2016 at 17:25 Discharge Date: October 31, 2016 Discharge Disposition: Home Principal Diagnosis: Chest pain Secondary Diagnoses/Problems: Elevated creatine GERD Diaphragmatic hernia Dyslipidemia BPH Procedures: Echo Interpretation Summary * Name: REJI HORTON Study Date: 10/31/2016 08:50 AM BP: 111/68 mmHg * Patient Location: [facility]\\S\\N284\\S\\2 HR: 55 * : 1940 (M/d/yyyy) Gender: Male Height: 74 in * Age: 76 yrs Ethnicity: [place] Weight: 215 lb * Ordering Physician: Eren Meade * Referring Physician: Colby Morelos * Performed By: Estella Beltran RDCS * * Reason For Study: CHEST PAIN * BSA: 2.2 m2 * The study was technically adequate. * There is no comparison study available. * -- Conclusions -- * Ejection Fraction = 65-70%. * The left ventricular wall motion is normal. * The aortic valve is mildly calcified. * Aortic valve sclerosis mild, without significant aortic valvular stenosis. * There is moderate focal calcification of the anterior mitral valve leaflet. * The mitral valve chordae are thickened and/or calcified. * There is no mitral valve stenosis. * Significant mitral regurgitation is absent. * Grade I diastolic dysfunction, (abnormal relaxation pattern). Procedure Details * A complete two-dimensional transthoracic echocardiogram was performed (2D, M-mode, Doppler and color flow Doppler). Left Ventricle * The left ventricle is normal in size. * There is no thrombus. * There is mild concentric left ventricular hypertrophy. * Ejection Fraction = 65-70%. * Left ventricular systolic function is normal. * The left ventricular wall motion is normal. Right Ventricle * The right ventricle is normal size. * The right ventricular systolic function is normal as assessed by tricuspid annular plane systolic excursion (TAPSE) (normal >1.5 cm). Atria * The left atrial size is normal. * Right atrial size is normal. * There is no evidence of atrial septal defect, but resolution does not allow assessment for a patent foramen ovale. Mitral Valve * There is moderate focal calcification of the anterior mitral valve leaflet. * The mitral valve chordae are thickened and/or calcified. * There is no mitral valve stenosis. * Significant mitral regurgitation is absent. Tricuspid Valve * The tricuspid valve is normal. * There is no tricuspid stenosis. * Significant tricuspid regurgitation is absent. Aortic Valve * The aortic valve is trileaflet. * The aortic valve is mildly calcified. * Aortic valve sclerosis mild, without significant aortic valvular stenosis. * Aortic stenosis is absent. * There is no significant aortic regurgitation. Pulmonic Valve * The pulmonary valve is not well seen, but the Doppler examination is normal without significant regurgitation or stenosis. Great Vessels * The aortic root is normal size. Pericardium/Pleural * There is no pericardial effusion. Great Vessels * Normal inferior vena cava diameter and respiratory variation suggests normal central venous pressure. Left Ventricular Diastolic Function * Grade I diastolic dysfunction, (abnormal relaxation pattern). Medication Reconciliation Continued Medications: Famotidine (Pepcid) 20 Mg Tab 1 TAB PO DAILY PRN for acid reflux, TAB Fenofibrate (Tricor) 200 Mg Cap 200 MG PO DAILY, CAP Multivitamins/Minerals (Mvi With Minerals) Tab 1 TAB PO DAILY, TAB Polyethylene Glycol 3350 (Miralax) 1 Pow Pow 17 GM PO DAILY, #255 GM Tamsulosin Hcl (Flomax) 0.4 Mg Cap 0.4 MG PO DAILY, CAP Admission Information HPI (per Admitting provider): 76 year old male with PMH of BPH, Dyslipidemia, CKD stage 3, Diaphragmatic hernia presents to the Emergency Room with complaints of constant chest pain that started yesterday. He states that his constant chest pain is accompanied by intermittent "sharp" pains that he rates as a 8/10 in severity. He said that yesterday the pain was radiating to his right jaw area. He said today his both upper extremities feel numb. Nothing relieves or worsens the pain. he said that he had hx of hiatal hernia and usually take famotidine for acid reflux. he said that he never experience any chest pain like this. he is very active and continue to work. he said that he does have a family history of cardiac disease. His father of an aortic aneurysm. he is pain is about 5/10 now. he Denies any SOB, palpitation, headache, dizziness, diaphoresis and weakness. Physical Exam (per Admitting): General Appearance: WD/WN, no apparent distress Head: normocephalic, atraumatic Eyes: normal inspection, PERRL, EOMI ENT: normal ENT inspection, hearing grossly normal Neck: supple, no JVD Respiratory/Chest: lungs clear, normal breath sounds, no respiratory distress Cardiovascular: regular rate, rhythm, no JVD, no murmur Abdomen/GI: normal bowel sounds, non tender, soft, + pertinent finding ( tenderness in mid epigastric area with deep palpation) Back: normal inspection, no CVA tenderness, normal range of motion Extremities/Musculoskelatal: normal inspection, no calf tenderness, no pedal edema Neurologic/Psych: no motor/sensory deficits, alert, normal mood/affect, oriented x 3 Skin: normal color, warm/dry, no rash Hospital Course Chest Pain Need to r/o ACS Possible atypical Pain free at this time Risks factor dyslipidemia, family history and age all set of troponin negative EKG showed no significant ST changes received aspirin 324mg in the ER on aspirin 81mg daily Echo showed Ejection Fraction = 65-70%. * The left ventricular wall motion is normal. * The aortic valve is mildly calcified. * Aortic valve sclerosis mild, without significant aortic valvular stenosis. * There is moderate focal calcification of the anterior mitral valve leaflet. * The mitral valve chordae are thickened and/or calcified. * There is no mitral valve stenosis. * Significant mitral regurgitation is absent. * Grade I diastolic dysfunction, (abnormal relaxation pattern). Elevated Creatine Possible related to dehydration Received IV fluid Continue Monitor BMP Will avoid nephrotoxic agents Dyslipidemia On fenofibrate Chol 143, LDL 81, Trig 112, HDL 40 Diaphragmatic hernia Continue Pepcid BPH continue flomax DVT px on heparin subq CODE STATUS FULL CODE Disposition Will discharge home today if echo is normal Follow up with PCP Dr. Farmer on 11/06 @ 2:45 pm Total time spent on discharge = 35 minutes This includes examination of the patient, discharge planning, medication reconciliation, and communication with other providers. Discharge Instructions Discharge Instructions Date of Service October 31, 2016. Admission Reason for Admission: Chest Pain Discharge Discharge Diagnosis / Problem: Chest pain, Elevated creatine, GERD Discharge Goals Goal(s): Decrease discomfort, Improve function, Improve disease control Activity Recommendations Activity Limitations: resume your previous activity (as tolerated) . Instructions / Follow-Up Instructions / Follow-Up Follow up with your primary care physician Dr. Farmer (dr. Morelos is on vacation) on 11/06 @ 2:45 pm Check BMP within 1 week Avoid nephrotoxic agents such as aleve, ibuprofen, motrin, naproxen Current Hospital Diet Patient's current hospital diet: AHA Diet (Heart Healthy) Discharge Diet Recommended Diet: AHA Diet (Heart Healthy) Pending Studies Studies pending at discharge: no Laboratory Results Lipid Panel Test 10/31/16 02:21 Range/Units Triglycerides Level 112 0-150 mg/dl Cholesterol Level 143 0-200 mg/dl HDL Cholesterol 40 mg/dl Cholesterol/HDL Ratio 3.6 LDL Cholesterol, Calculated 81 mg/dl Medical Emergencies . Who to Call and When: Medical Emergencies: If at any time you feel your situation is an emergency, please call 911 immediately. . Non-Emergent Contact Non-Emergency issues call your: Primary Care Provider Call Non-Emergent contact if: you have any medication questions . . "Provider Documentation" section prepared by Eren Meade. . VTE Core Measure Inpt VTE Proph given/why not?: Unfractionated heparin SQ Additional Copies To To Farmer M.D. Lavery, Doriann M.D.
== END 2016-10-31 18:30 | disposition home or self-care (01) ==
LOC: ENRESERVTM → ENRESERVDT → C.EDB 14:33 → C.MED 17:25
PROVIDERS: ADMIT Internal Medicine; ATTEND Internal Medicine
DX: R07.9 Chest pain, unspecified (principal); R79.89 Other specified abnormal findings of blood chemistry; K21.9 Gastro-esophageal reflux disease without esophagitis; K46.9 Unspecified abdominal hernia without obstruction or gangrene; E78.5 Hyperlipidemia, unspecified; N40.0 Benign prostatic hyperplasia without lower urinary tract symptoms; N18.3 Chronic kidney disease, stage 3 (moderate); Z87.891 Personal history of nicotine dependence; Z80.9 Family history of malignant neoplasm, unspecified; Z83.3 Family history of diabetes mellitus; Z82.49 Family history of ischemic heart disease and other diseases of the circulatory system